=== PATIENT | male | born 1995 | race Caucasian/White ===

== ENCOUNTER 2017-06-23 09:21 | Emergency (ER) | payer OTHER ==
[~2017-06-23] VITALS: Ht 182.9 cm; Wt 81.8 kg
[2017-06-23 09:22] VITALS: BP 130/76
[2017-06-23] MEDS ORDERED: CYCL10TA PO (09:31)
== END 2017-06-23 10:01 | disposition home or self-care (01) ==
LOC: M ED 09:21
DX: S09.90XA Unspecified injury of head, initial encounter (principal); W01.198A Fall on same level from slipping, tripping and stumbling with subsequent striking against other object, initial encounter; Y92.002 Bathroom of unspecified non-institutional (private) residence as the place of occurrence of the external cause; Y93.89 Activity, other specified; Y99.8 Other external cause status; F33.9 Major depressive disorder, recurrent, unspecified; M51.9 Unspecified thoracic, thoracolumbar and lumbosacral intervertebral disc disorder

== ENCOUNTER → 2018-07-08 | Outpatient (REF) | payer OTHER ==
[~2018-07-08] MED LIST: CYCL10TA PO
== END ==
LOC: M LAB REF 09:38
PROVIDERS: ATTEND Physician Assistant
DX: R19.7 Diarrhea, unspecified (principal)

== ENCOUNTER → 2019-07-03 | Outpatient (REF) | payer BC ==
[2019-07-03 15:57] LABS: RUBELLA IgG QUALITATIVE IMMUNE (IMMUNE)
[2019-07-05 10:06] LABS: HERPES ZOSTER, VARICELLA IgG 705 index (Immune >165); RUBEOLA IgG ANTIBODY >300.0 AU/mL (Immune >16.4)
== END ==
LOC: M LABDRAW1 12:59
PROVIDERS: ATTEND Family Medicine
DX: Z01.84 Encounter for antibody response examination (principal)